=== PATIENT | male | born 1995 | race Caucasian/White ===

== ENCOUNTER 2019-05-25 02:02 | Emergency (ER) | payer OTHER ==
[~2019-05-25] VITALS: Ht 175.3 cm; Wt 72.6 kg
[2019-05-25 02:02] VITALS: BP_SYST 132
--- NOTE | 2019-05-25 02:02 | NUR ---
Pt arrives to ER in custody of peace officers for BA and medical clearance, placed to ER chair. Pt here for BA and medical clearance r/t right shoulder pain from a forced arrest. Pt c/o pain to right shoulder with movement and palpation. Unable to perform ROM r/t pain. No obvious deformity or trauma noted. Pt denies hitting head or LOC. Addendum: 05/25/19 at 0315 by [email or web address] Pt HR 139, denies c/o C/P or SOB. Dr. Martinez made aware.
--- NOTE | 2019-05-25 02:15 | NUR ---
Dr. Juan merrill pt.
--- NOTE | 2019-05-25 02:21 | NUR ---
Written and verbal consent obtained from patient for blood alcohol, name and verified by patient. Disinfected patient's skin with Povidine/Iodine that did not contain alcohol or other volatile organic compound. Collected the blood from the subject named by venipuncture, in the presence of Officer Liza #[id number]. Used a sterile, dry hypodermic needle and dry vacuum blood collection. Two dry vacuum blood collection was supplied by the officer named above. Withdrew a specimen of blood from RFA of the subject named above. Inverted both blood tube several times to ensure that the preservative and anticoagulant were thoroughly mixed in the blood specimen. I initialed both blood tube label for identification. The labeled blood tubes was handed directly to the Officer named above. The blood tubes stopper remained in place while I had possession of the blood tubes. The Officer placed tubes into envelope and sealed it in my presence. Envelope initialed by myself and Officer named above. Patient tolerated well, bandage applied, and bleeding controlled.
[2019-05-25] MEDS ORDERED: IBUPROFEN 800 MG TABLET PO ONE (02:30)
--- NOTE | 2019-05-25 02:38 | NUR ---
Pt to X-ray accompanied by peace officers.
--- NOTE | 2019-05-25 03:05 | NUR ---
Pt returns from X-ray accompanied by peace officers. Pt HR 130, denies c/o C/P or SOB. Dr. Martinez made aware.
--- NOTE | 2019-05-25 03:40 | NUR ---
Pt HR 128. Denies c/o C/P or SOB. Verbalizes ongoing pain to right shoulder with no relief from Motrin. Dr. Martinez notified.
--- NOTE | 2019-05-25 03:42 | NUR ---
Dr. Martinez speaking with pt.
--- NOTE | 2019-05-25 03:50 | NUR ---
Swelling noted to right clavicle, dx with clavicular fx. Right shoulder immobilizer placed.
--- NOTE | 2019-05-25 03:50 | NUR ---
Pt admits to using cocaine "earlier to today". Pupils appear diliated.
[2019-05-25] MEDS ORDERED: LORazepam 2 MG/ML VIAL (FOR ER USE) IM ONE (04:00)
[2019-05-25 04:10] VITALS: BP_SYST 132
--- NOTE | 2019-05-25 04:10 | NUR ---
chief innovation officer given written and verbal discharge instructions and verbalizes understanding. ER MD discussed with patient the results and treatment provided. ID arm band removed. Rx of Motrin given. Patient educated on pain management and to follow up with PMD. Pain Scale 4/10. Opportunity for questions provided and answered. Medication side effect fact sheet provided. Pt leaves in stable condition, in cuffs, in c/o peace officers to long-term via squad car.
== END 2019-05-25 04:10 ==
LOC: SED 02:02
DX: M25.511 Pain in right shoulder (principal)
CPT/HCPCS: 73000; 73030; 96372; 99283; J2060